=== PATIENT | female | born 1940 | race Caucasian/White ===

== ENCOUNTER 2019-01-16 17:05 | Inpatient (IN) | payer OTHER ==
[~2019-01-16] VITALS: Ht 149.9 cm; Wt 53.1 kg
[2019-01-16 17:05] VITALS: BP 149/74
[2019-01-16] MEDS ORDERED: LEVEMIR FL100 UNIT/2 SUBQ (17:40)
[2019-01-16] MEDS ORDERED: LEVO-T50 MCG PO (17:41)
[2019-01-16] MEDS ORDERED: COZAAR 25 MG TA25 M2 PO (17:41)
[2019-01-16] MEDS ORDERED: PLAVIX 75 MG TA75 MG PO (17:42)
[2019-01-16] MEDS ORDERED: ERGOCALCIF50000 UNIT PO (17:42)
[2019-01-16] MEDS ORDERED: FAMOTIDINE 10 M10 MG PO (17:43)
[2019-01-16] MEDS ORDERED: ESCITALOPRA5 MG/5 ML PO (17:43)
[2019-01-16] MEDS ORDERED: SLOW FE142 MG PO (17:44)
[2019-01-16] MEDS ORDERED: FOLIC ACID1 MG PO (17:44)
[2019-01-16] MEDS ORDERED: FLUVASTATIN ER80 MG PO (17:44)
[2019-01-16] MEDS ORDERED: KLOR-CON 1010 MEQ PO (17:44)
[2019-01-16] MEDS ORDERED: MELATONIN3 M1 PO (17:45)
[2019-01-16] MEDS ORDERED: RAYOS5 MG PO (17:45)
[2019-01-16] MEDS ORDERED: MELOXICAM15 MG PO (17:45)
[2019-01-16] MEDS ORDERED: METFORMIN HCL500 M3 PO (17:46)
[2019-01-16] MEDS ORDERED: METHOTREXATE 22.5 M1 PO (17:49)
[2019-01-16] MEDS ORDERED: ALLOPURINOL 10100 M3 PO (17:50)
[2019-01-16] MEDS ORDERED: AMITRIPTYLINE H10 M1 PO (17:50)
[2019-01-16] MEDS ORDERED: NORVASC 2.5 MG2.5 M1 PO (17:51)
[2019-01-16 18:17] LABS: ABSOLUTE NEUTROPHILS 5.4 thou/uL (1.4-8.2); BASOPHILS 0.1 % (0.0-2.0); EOSINOPHILS 0.4 % (0.0-3.0); HEMATOCRIT 34.5 % (37.0-47.0); HEMOGLOBIN 11.8 gm/dL (12.0-15.0); LYMPHOCYTES 21.8 % (24.0-44.0); MCH 34.5 pg (26.0-34.0); MCHC 34.3 g/dL (28.0-37.0); MCV 100.6 fL (80.0-100.0); MONOCYTES 0.9 % (1.0-8.0); PLATELET COUNT 333 thou/uL (150-400); POLYS 76.8 % (36.0-66.0); RBC 3.43 mil/uL (4.20-5.00); RDW 15.3 % (10.5-14.5)
[2019-01-16 18:32] LABS: CALCIUM 9.2 mg/dL (8.5-10.1); POTASSIUM 4.9 mmol/L (3.5-5.1)
[2019-01-16 18:37] LABS: ALBUMIN 3.5 g/dL (3.4-5.0); TOTAL BILIRUBIN 0.4 mg/dL (<0.1-1.0); TOTAL PROTEIN 7.1 g/dL (6.4-8.2)
[2019-01-16 19:33] LABS: LIPASE 379 U/L (73-393); TROPONIN-I <0.06 ng/mL (<0.06)
[2019-01-16 19:56] LABS: URINE BILIRUBIN NEGATIVE (Negative); URINE BLOOD NEGATIVE (Negative); URINE CLARITY CLEAR; URINE COLOR YELLOW; URINE GLUCOSE-RANDOM* NEGATIVE (Negative); URINE KETONES NEGATIVE (Negative); URINE LEUKOCYTES-REFLEX NEGATIVE (Negative); URINE NITRITE-REFLEX NEGATIVE (Negative); URINE PROTEIN (DIPSTICK) 2+ (Negative); URINE SPECIFIC GRAVITY 1.015 (1.005-1.035); URINE UROBILINOGEN 0.2 E.U./dl (0.2-1.0)
[2019-01-16 20:19] LABS: BACTERIA-REFLEX None Seen /HPF (None Seen); CASTS None Seen /LPF (None Seen); CRYSTALS None Seen /LPF (None Seen); SQUAMOUS 0-3 Few /LPF (0-3); URINE RBC 0-2 Rare /HPF (0-2); URINE WBC-REFLEX 0-5 Rare /HPF (0-5)
[2019-01-16 21:37] VITALS: BP 157/82
[2019-01-16 22:02] VITALS: BP 157/82
[2019-01-16] MEDS ORDERED: TRAZODONE HCL50 MG PO (22:43)
[2019-01-17 03:41] LABS: HEMATOCRIT 27.4 % (37.0-47.0); MCH 34.8 pg (26.0-34.0); MCHC 34.7 g/dL (28.0-37.0); MCV 100.4 fL (80.0-100.0); RBC 2.73 mil/uL (4.20-5.00); WBC 6.3 thou/uL (4.0-11.0)
[2019-01-17 03:51] LABS: CALCIUM 8.4 mg/dL (8.5-10.1); CREATININE 0.9 mg/dL (0.6-1.0)
[2019-01-17 04:25] LABS: HEMOGLOBIN 9.5 gm/dL (12.0-15.0)
[2019-01-17 04:27] LABS: POTASSIUM 3.8 mmol/L (3.5-5.1)
--- NOTE | 2019-01-17 04:32 | NUR ---
ADMITTED FROM ER UNDER 'S CARE. AXOX4. AT BEDSIDE. ISOLATION FOR POSSIBLE C.DIFF. EDUCATED ON WEARING GOWNS AND GLOVE FOR CONTACT WITH PT. PERSISTENT PAIN ON MOUTH,THROAT AND BACK. MEDICATE PER MD ORDER. FALL BUNDLE IN PLACE. NO S/S ACUTE DISTRESS NOTED REPORTED AT THIS TIME. WILL CONT TO MONITOR FOR ANY CHANGES IN CONDITION.
[2019-01-17 05:46] VITALS: BP 153/105
[2019-01-17 08:00] VITALS: BP 152/88
--- NOTE | 2019-01-17 08:09 | EKG ---
[address] [address] ELECTROCARDIOGRAM REPORT Name: ROSATUNDE Sergo Room #: 434-P [facility] IN ..#: [id number] Admission: 01/16/19 Attend Phys: Eugene Horton MD Discharge: Date of : 36 Report #: [id number] THIS REPORT FOR: //name// [facility] ED Test Date: 2019-01-16 Test Time: 19:29:59 Pat Name: TUNDE LEE Department: Room: 434 Gender: F Attacher: ORION : [id number] Requested By: Galen Barnard Order Number: [id number] MD: Flip Vizcarra Measurements Intervals [place] Rate: 82 P: 52 MA: 151 QRS: -41 QRSD: 118 T: 33 QT: 403 QTc: 471 Interpretive Statements Sinus rhythm Incomplete left bundle branch block No previous ECG available for comparison Electronically Signed On 01-17-2019 8:09:27 CDT by Flip Vizcarra [email or web address] <ELECTRONICALLY SIGNED> By: Flip Vizcarra MD, [facility] 01/17/19 0809 28 28 Flip Vizcarra MD, FACC /EPI
--- NOTE | 2019-01-17 10:45 | NUR ---
INITIAL ASSESSMENT: Pt evaluated for d/c planning needs. Reviewed chart and spoke with nurse, pt and spouse. Pt is alert and oriented. Pt lives in house with spouse and was independent with ADL's prior to admission to the hospital. Pt has no DME and has not had home health in the past. Pt plans on returning home on d/c from hospital. Explained AD/LW to pt and left brochure. They will have nurse contact CM if they decide to complete during hospitalization. Will remain available to assist as needed.
--- NOTE | 2019-01-17 15:55 | NUR ---
ASSUMED CARE OF PT AT 0700. PT ABLE TO AMBULATE WITH STANDBY ASSIST, BUT PT REFUSES GAITBELT. EXPLAINED FALL PRECAUTIONS TO PT AND PT UNDERSTOOD. PT'S MOUTH IS VERY PAIN AND PAIN IS BEING CONTROLLED BY MAGIC MOUTHWASH AND PAIN MEDICATION. PT IS ON ISOLATION FOR POSSIBLE C DIFF, BUT PT HAS NOT YET BEEN ABLE TO HAVE A BOWEL MOVEMENT. BED IS IN THE LOWEST POSITION. CALL LIGHT IS WITHIN REACH. BED ALARM IS ON AND FALL PRECAUTIONS ARE IN PLACE. WILL CONTINUE TO MONITOR THE PT.
[2019-01-17 17:38] VITALS: BP 138/56
[2019-01-17 19:37] VITALS: BP 138/60
[2019-01-17 19:40] VITALS: BP 138/60
--- NOTE | 2019-01-18 04:00 | NUR ---
PATIENT ALERT AND ORIENTED X4. UP WITH ONE ASSIST TO THE BATHROOM. IVF INFUSING W/O COMPLICATION. BS MONITORED PER ORDER. C/O MOUTH AND ABDOMINAL PAIN AND MEDICATED WITH GOOD RESUSTS. SOME WHITE BLISTERS NOTED ON BOTTOM LIP. NO BM DURING THE NIGHT - IF NO BM DURING THE DAY PATIENT WILL BE TAKEN OFF OF CDIFF ISOLATION. WILL MONITOR.
[2019-01-18 04:22] VITALS: BP 152/60
[2019-01-18 07:40] VITALS: BP 157/55
[2019-01-18 11:28] LABS: HEMATOCRIT 21.4 % (37.0-47.0); MCH 34.6 pg (26.0-34.0); MCHC 33.7 g/dL (28.0-37.0); MCV 102.7 fL (80.0-100.0); RBC 2.09 mil/uL (4.20-5.00); RDW 15.4 % (10.5-14.5); WBC 3.3 thou/uL (4.0-11.0)
[2019-01-18 11:32] LABS: HEMOGLOBIN 7.2 gm/dL (12.0-15.0)
[2019-01-18 14:08] LABS: ALBUMIN 2.5 g/dL (3.4-5.0); CALCIUM 8.2 mg/dL (8.5-10.1); CREATININE 0.8 mg/dL (0.6-1.0); MAGNESIUM 1.1 mg/dL (1.8-2.4); TOTAL BILIRUBIN 0.4 mg/dL (<0.1-1.0)
[2019-01-18 16:10] VITALS: BP 144/63
--- NOTE | 2019-01-18 17:00 | NUR ---
Assumed care of pt at 0700. Pt a&ox4. C-diff isolation discontinue due to no stools since admission. Waiting to collect stool sample for occult blood. ENT, GI, and RA doctor consulted. Delta hg 7.2 and Plt 124 called from lab. provider aware. Labs will be redrawn. order dilaudid for pt c/o pain. Med administered. Pt becomes confused and hallucinating. Provider called and asked to see pt in room. Dilaudid order dc'd. Family at bedside. Fall precautions in place. Will continue to monitor.
[2019-01-18 17:01] LABS: HEMATOCRIT 27.1 % (37.0-47.0); HEMOGLOBIN 9.1 gm/dL (12.0-15.0); MCHC 33.5 g/dL (28.0-37.0); MCV 104.5 fL (80.0-100.0); RBC 2.6 mil/uL (4.20-5.00); RDW 15.4 % (10.5-14.5); WBC 3.8 thou/uL (4.0-11.0)
[2019-01-18 19:32] VITALS: BP 119/49
[2019-01-18 20:23] LABS: FOLIC ACID 57.3 ng/mL (8.6-58.9)
--- NOTE | 2019-01-19 03:05 | NUR ---
PATIENT ALERT AND ORIENTED X4. UP WITH ONE ASSIST TO THE BATHROOM. IVF INFUSING W/O COMPLICATION. MEDICATED FOR ABDOMINAL PAIN WITH GOOD RESULTS PATIENT IS ABLE TO SLEEP DURING THE NIGHT. BS MONITORED PER ORDER. IV INFILTRATED AND THIS NURSE PLACED A NEW ONE IN RIGHT FOREARM. NO STOOL AT TIME OF NOTE. WILL MONITOR.
[2019-01-19 04:05] VITALS: BP 172/67
[2019-01-19 06:21] LABS: HEMATOCRIT 26.5 % (37.0-47.0); HEMOGLOBIN 9.1 gm/dL (12.0-15.0); MCH 35.1 pg (26.0-34.0); MCHC 34.5 g/dL (28.0-37.0); MCV 101.8 fL (80.0-100.0); RBC 2.6 mil/uL (4.20-5.00); WBC 3.2 thou/uL (4.0-11.0)
[2019-01-19 06:40] LABS: CALCIUM 8.1 mg/dL (8.5-10.1); CREATININE 0.8 mg/dL (0.6-1.0); MAGNESIUM 1.6 mg/dL (1.8-2.4); POTASSIUM 3.6 mmol/L (3.5-5.1)
[2019-01-19 09:03] VITALS: BP 159/85
--- NOTE | 2019-01-19 11:30 | HC ---
[facility] [place] [address] CONSULTATION Name: TUNDE LEE Room #: 434-P ADM IN M.R.#: [id number] Admission: 01/16/19 Attend Phys: Eugene oHrton MD Discharge: Date of : 38 Report #: [id number] THIS REPORT FOR: //name// CC: Dr. Leonarda ESPINAL DATE OF SERVICE: 01/18/2019 HISTORY OF PRESENT ILLNESS: The patient is an 78-year-old female with a history of chronic headache as well as odynophagia and dysphagia. The patient also has had a drop in her hemoglobin from admission at 11.8-7.2, although she was complaining of diarrhea at home. She has not had a bowel movement since admission. In fact, stool studies have been ordered, but they have not been able to run these tests because she has not had a bowel movement. She denies any history of bright red blood per rectum or melena. She does complain of abdominal pain. She also has been taking large amount of NSAIDs, Motrin in particular. She is on Plavix. She also is on meloxicam. No previous history of GI bleed. No history of peptic ulcer disease per the patient and her . Her and the patient states she has chronic constipation issues and actually takes Guatemalan Pratibha, which is an herbal laxative every day including a stool softener at home and this results in diarrhea and their opinion. She apparently had a colonoscopy last year at [facility] that was negative. She has painful ulcer on her lip and in her mouth. Apparently, she was to have ENT consultation on Sunday as well. She denies any chest pain currently or shortness of breath. No fevers or chills. PAST MEDICAL HISTORY: Hypertension, diabetes, anemia, chronic headache, hypothyroidism, previous appendectomy, history of gout. MEDICATIONS ON ADMISSION: Trazodone, insulin, Cozaar, Plavix, ____ Pepcid 10 mg daily, iron, folic acid, potassium chloride, prednisone, melatonin, meloxicam, metformin, methotrexate, allopurinol, amitriptyline, amlodipine. REVIEW OF SYSTEMS: As per HPI. FAMILY HISTORY: Negative for colon cancer. SOCIAL HISTORY: She denies any tobacco or alcohol use. ALLERGIES: No known drug allergies. PHYSICAL EXAMINATION: [facility] [address] [place] [address] CONSULTATION Name: TUNDE LEE Room #: 434-P [facility] IN [facility]#: [id number] Admission: 01/16/19 Attend Phys: Eugene Horton MD Discharge: Date of : 38 Report #: [id number] VITAL SIGNS: Temperature is 36.9, pulse 70, blood pressure 157/55, respiratory rate is 18. GENERAL: She is alert and oriented x 3, in no acute distress. HEENT: Sclerae nonicteric. Oropharynx shows an ulcer just on the inside of her bottom lip. Lips are dry and chapped as well. NECK: Supple, without lymphadenopathy. CARDIOVASCULAR: Regular rate and rhythm. CHEST: Clear to auscultation anteriorly bilaterally. ABDOMEN: Soft. She is mildly tender to palpation diffusely. Nondistended. Positive bowel sounds. EXTREMITIES: No edema. LABORATORY DATA: WBC is 3.3, hemoglobin 7.2, platelet count is 124. Her hemoglobin again is dropped from 11.8 to 7.2 in three days. Electrolytes from today have not been received. IMAGING: CT scan of the abdomen and pelvis on 01/16/2019 shows slight fluid prominence of the right colon along with haustral appearance. The left colon shows slight wall thickening along mild enhancement of the colonic wall. Clinical correlation recommended possible subtle changes of colitis or inflammatory bowel disease. No findings of bowel obstruction. Gallbladder was normal. Previous appendectomy noted. ASSESSMENT AND PLAN: 1. Odynophagia. The patient also with dysphagia. She does have an ulcer on her bottom lip. I would recommend proceeding with an upper endoscopy on Sunday. We will make further recommendations at that time. In the meantime, because of her odynophagia, we will start liquid Carafate, which could maybe help her bottom lip ulcer as well. We will also place the patient on a PPI, especially with her drop in hemoglobin and a history of NSAID Plavix as well as meloxicam use. We will rule out peptic ulcer disease on Sunday. The patient obviously has had a drop in her hemoglobin. If there are signs of significant bleeding, may need to consider endoscopy sooner. 2. History of diarrhea; however, in discussing further with the patient and her . Apparently, she has a chronic history of constipation and therefore takes several different laxatives at home in order to have a bowel movement and when she finally does have a bowel movement, it tends to be diarrhea. I explained to the patient we may want to consider discontinuing her current regimen and consider a trial of Amitiza or Linzess in the near future. She apparently has already tried MiraLax without much improvement. Thank you for allowing me to participate in her care. <ELECTRONICALLY SIGNED> By: Jhonatan Wall MD 01/19/19 1130 1302 1327 Jhonatan Wall MD /dakota
--- NOTE | 2019-01-19 17:49 | NUR ---
PT RESTING QUIETLY IN BED FAMILY AT BEDSIDE. PT PLEASANT AND COOPERATIVE WITH CARE. CONT OF BOWEL AND BLADDER. WALKS TO BATHROOM WITH STEADY GAIT. DR CHAVEZ ENT HERE AND ORDERED CREAM FOR LIPS AND MED TO SWISH WITH. BLOOD SUGARS CHECKED. S/S INSULIN PER ORDERS. REMAINS ON CLEAR LIQUIDS.
[2019-01-19 18:36] VITALS: BP 94/57
[2019-01-19 21:02] VITALS: BP 137/61
--- NOTE | 2019-01-20 04:21 | NUR ---
PATIENT ALERT AND ORIENTED X4. SLEPT WELL DURING THE NIGHT. C/O PAIN AND MEDICATED WITH GOOD RESULTS. IVF INFUSING W/O COMPLICATION. BS MONITORED PER ORDER. PATIENT HAS BEEN NPO SINCE 2358 ON 01/19/19 FOR EGD PROCEDURE NOT YET SCHEDULED. STATES THAT HER MOUTH FEELS A LITTLE BETTER. UP WITH ONE ASSIST TO THE BATHROOM. WILL MONITOR.
[2019-01-20 05:43] VITALS: BP 134/64
[2019-01-20 06:37] LABS: HEMATOCRIT 25.2 % (37.0-47.0); HEMOGLOBIN 8.6 gm/dL (12.0-15.0); MCHC 34.3 g/dL (28.0-37.0); MCV 102.2 fL (80.0-100.0); RBC 2.47 mil/uL (4.20-5.00); RDW 15.2 % (10.5-14.5); WBC 3.1 thou/uL (4.0-11.0)
[2019-01-20 06:53] LABS: CALCIUM 8.4 mg/dL (8.5-10.1); CREATININE 0.8 mg/dL (0.6-1.0); MAGNESIUM 1.5 mg/dL (1.8-2.4)
[2019-01-20 07:43] VITALS: BP 189/77
--- NOTE | 2019-01-20 18:50 | NUR ---
ASSUMED CARE @ 0700, ASSESSMENTS AND VSS COMPLETE PER MS ORDERS, FAMILY AT BEDSIDE DURING THE SHIFT. PT HAD AN UNEVENTFUL NIGHT.
[2019-01-20 20:40] VITALS: BP 179/80
[2019-01-21] VITALS (8 sets, daily range): BP systolic 131–173; BP diastolic 48–76
--- NOTE | 2019-01-21 05:11 | NUR ---
ASSUMED CARE OF PT AT AROUND 2099. ASSESSMENT CHARTED. MEDICATIONS GIVEN PER MAY. PT IS A&OX4, HAS GOTTEN UP TO TOILET WITH SBA AND STEADY GAIT. PT CONTINUES TO COMPLAIN OF MOUTH AND THROAT PAIN. PRN MEDS GIVEN AND PAIN WILL BE CONTINUED TO BE MONITORED. SCD'S IN PLACE. CURRENTLY, PT REPORTS GENERAL MALAISE AND WEAKNESS. BP WAS ELEVATED. GIVEN PRN BP MED BY RN AND STABLIZED. PT ALSO CONCERNED WITH MINOR SWELLING OF FACE AND HANDS. NO REDNESS NOTED. WILL CONTINUE TO MONITOR
[2019-01-21 05:54] LABS: HEMATOCRIT 30.2 % (37.0-47.0); HEMOGLOBIN 10.3 gm/dL (12.0-15.0); MCHC 34.1 g/dL (28.0-37.0); MCV 102.5 fL (80.0-100.0); RBC 2.95 mil/uL (4.20-5.00); RDW 15.7 % (10.5-14.5); WBC 5.2 thou/uL (4.0-11.0)
[2019-01-21 06:20] LABS: CALCIUM 8.9 mg/dL (8.5-10.1); CREATININE 0.9 mg/dL (0.6-1.0); MAGNESIUM 1.6 mg/dL (1.8-2.4); POTASSIUM 3.8 mmol/L (3.5-5.1)
--- NOTE | 2019-01-21 12:33 | NUR ---
Received awake on bed. Due medications given as prescribed, able to swallow meds w/o difficulty. A+Ox4. On room air. On blood sugar monitoring- taken and recorded accordingly; with sliding scale insulin prescribed. On full liquids- tolerating well; no nausea, no vomiting or abdominal pain noted. With relatives at bedside. With NS at 75cc/hr, infusing well at R FA. Pt complained of pain, due PRN pain meds given as prescribed. Vital signs stable. Pt complained that she still has not have a bowel movement for 5 days despite being on daily Miralax- Dr Cardoso informed, PRN lactulose given as prescribed. Able to go to the bathroom with A01, using gait belt.
[2019-01-22 05:29] LABS: HEMATOCRIT 26.3 % (37.0-47.0); HEMOGLOBIN 8.8 gm/dL (12.0-15.0); MCH 34.3 pg (26.0-34.0); MCHC 33.5 g/dL (28.0-37.0); MCV 102.4 fL (80.0-100.0); RBC 2.57 mil/uL (4.20-5.00); RDW 15.9 % (10.5-14.5); WBC 3.3 thou/uL (4.0-11.0)
[2019-01-22 05:41] LABS: CALCIUM 8.8 mg/dL (8.5-10.1); CREATININE 0.7 mg/dL (0.6-1.0); MAGNESIUM 1.6 mg/dL (1.8-2.4); POTASSIUM 3.7 mmol/L (3.5-5.1)
--- NOTE | 2019-01-22 06:20 | NUR ---
ASSUMED PT CARE AT APPROX 2100. PATIENT IS A&OX4. ASSESSMENT CHARTED. MEDICATIONS GIVEN PER MAY. PT STATES PAIN ON MOUTH AND THROAT IS STILL BOTHERING HER. WE WILL BE GIVING HER PRN PAIN MEDS NEEDED. PT IS STATING ABDOMINAL DISCOMFORT. ABD IS DISTENDED. FALL PRECAUTIONS IN PLACE. WILL CONTINUE TO MONITOR PATIENT. MIRALAX WAS GIVEN.
--- NOTE | 2019-01-22 17:15 | NUR ---
Therapy evals yesterday. No hh f/u indicated at this time. Pt having abd pain today. Will continue to follow should dc needs arise.
[2019-01-22 18:25] VITALS: BP 125/41
[2019-01-22 20:03] VITALS: BP 135/59
--- NOTE | 2019-01-22 20:38 | NUR ---
AT 1045 PATIENT GIVEN MAG CITRATE AND ENEMA. LATER HAD 4 BOWEL MOVEMENTS. PT SBA TO BATHROOM HAS STEADY GAIT.
--- NOTE | 2019-01-23 02:48 | NUR ---
ASSUMED CARE OF PT AT 1900HRS. PT AOX4 AND LETS NEEDS BE KNOWN. FALL PRECAUTION IN PLACE. PT REPORTED PAIN AND WAS TREATED WITH PRN PAIN MEDS. PT WAS AVLE TO SLEEP PART OF THE SHIFT. VSS AND NO S/S OF ACUTE DISTRESS. WILL CONTINUE TO MONITOR.
[2019-01-23 06:28] LABS: HEMATOCRIT 27.6 % (37.0-47.0); HEMOGLOBIN 9.4 gm/dL (12.0-15.0); MCH 34.6 pg (26.0-34.0); MCV 101.6 fL (80.0-100.0); RBC 2.72 mil/uL (4.20-5.00); RDW 15.6 % (10.5-14.5)
[2019-01-23 06:53] LABS: ALBUMIN 2.7 g/dL (3.4-5.0); CALCIUM 8.8 mg/dL (8.5-10.1); CREATININE 0.7 mg/dL (0.6-1.0); MAGNESIUM 1.5 mg/dL (1.8-2.4); POTASSIUM 3.3 mmol/L (3.5-5.1); TOTAL BILIRUBIN 0.3 mg/dL (<0.1-1.0); TOTAL PROTEIN 5.8 g/dL (6.4-8.2)
[2019-01-23] MEDS ORDERED: TRAMADOL 50 MG50 MG PO (13:26)
[2019-01-23] MEDS ORDERED: PROTONIX40 M1 PO (13:26)
[2019-01-23] MEDS ORDERED: MAGIC MOUTHWASH SWISH&SPIT (13:26)
[2019-01-23] MEDS ORDERED: CARAFATE 11 GM/10 M1 PO (13:26)
[2019-01-23 13:41] VITALS: BP 155/72
--- NOTE | 2019-01-23 14:06 | PATH ---
[facility] [place] [address] PATHOLOGY RPT PROCEDURE Name: LATHA LEE Sergo Room #: 434-P [facility] IN M.R.#: [id number] Admission: 01/16/19 Date of : 38 Discharge: Report #: [id number] Path Case #: [id number] [facility] Accession Number: [id number] . 01 Material submitted: . PART A: esophagus - ESOPHAGUS BIOPSY PART B: stomach - GASTRIC EROSION . 01 Clinical history: . Pre-op diagnosis: Pain with swallowing Post-op diagnosis: Gastric erosion . 02 Diagnosis: A. Squamous mucosa, esophagus, endoscopic biopsy: - Mild esophagitis showing features compatible with reflux esophagitis. - Negative for increase in intraepithelial eosinophils. - Negative for intestinal metaplasia or dysplasia. . B. Gastric mucosa, gastric erosion, endoscopic biopsy: - Moderate reactive gastropathy. - Pigmented material overlying reactive mucosa (please see comment). - Negative for intestinal metaplasia or atrophy. - Negative for Helicobacter pylori (properly-controlled immunohistochemical stain performed). . (IUV:mml; 01/22/2019) QLM 01/22/2019 1154 Local . 02 Comment: Examination shows pigmented material overlying the reactive gastric mucosa. This may represent bile pigment, or iron. A special stain is ordered and the results of this will be reported in an addendum to follow. . (IUV:mml; 01/22/2019) . 02 Addendum: . This addendum is issued subsequent to reviewing a properly controlled iron special stain performed on block B. The iron stain is positive within the pigment identified on the surface epithelium, consistent with the provided history of gastric erosion or prior bleeding. The positive stain excludes the possibility that this pigment represents bile. (IUV:blake; 01/23/2019) . . Professional services performed by [facility] at [facility], [address] [place] [address] , [place] [address]. Technical services performed by [facility] at [address] [place] [address], [address], [place] [address]. [facility] [address] [place] [address] PATHOLOGY RPT PROCEDURE Name: LEELATHA Room #: 434-P [facility] IN M.R.#: [id number] Admission: 01/16/19 Date of : 38 Discharge: Report #: [id number] Path Case #: [id number] MBR/01/23/2019 Addendum Electronically Signed by Latanya U Vadlamani, MD, Pathologist . 02 Electronically signed: . Latanya Avila MD, Pathologist NPI- [id number] . 01 Gross description: . A. The specimen is received in formalin, labeled "Latha Lee, esophagus biopsy". Received are f five segments of pale diaz soft tissue ranging in size from 0.3 to 0.5 cm in maximum dimensions. The specimen is submitted entirely in cassette A1. . B. The specimen is received in formalin, labeled "Latha Lee, gastric erosion". Received are four segments of pale diaz soft tissue ranging in size from 0.3 to 0.5 cm in maximum dimensions. The specimen is submitted entirely in cassette B1. (CAA; 01/21/2019) QAC/QAC 01/21/2019 0927 Local . 02 Pathologist provided ICD-10: K21.9, K31.9 . 02 CPT . 578330, 750410, V56029, 165975 Specimen Comment: A courtesy copy of this report has been sent to Specimen Comment: [phone], , . Specimen Comment: Report sent to ,DR ESPINAL / DR COTTRELL Performed at: [address], [place] [id number] MD Je Bravo MD Phone: [phone] Performed at: [address] [id number] MD Latanya Avila MD Phone: [phone]
--- NOTE | 2019-01-23 14:08 | NUR ---
DISCHARGE PAPERS GONE OVER WITH PATIENT SIGNED AND COPY IN CHART. IV ACSESS DCD. RX'S GIVEN TO PATIENT. ALL BELONGINGS PACKED AND TO BE SENT WITH PATIENT. HERE WITH PATIENT. PATIENT W/O PAIN OR RESP DISTRESS AT DISCHARGE.
[2019-01-23 14:18] VITALS: BP 155/72
--- NOTE | 2019-02-04 15:49 | HC ---
[facility] [place] [address] [place] [address] CONSULTATION Name: TUNDE LEE eSrgo Room #: 434-P [facility] IN M.R.#: [id number] Admission: 01/16/19 Attend Phys: Eugene Horton MD Discharge: 01/23/19 Date of : 38 Report #: [id number] THIS REPORT FOR: //name// CC: Dr. Coby ESPINAL DATE OF SERVICE: 01/16/2019 SURGEON: Jeffrey Carias MD REASON FOR CONSULTATION: Mouth ulceration. HISTORY OF PRESENT ILLNESS: The patient is an 78-year-old female admitted to [facility] on 01/16/2019 with complaints of ulcerations in her mouth that had their onsets shortly after beginning antibiotics for suspected sinus infection by her primary care physician. She had been prescribed doxycycline, rizatriptan and prednisone. These ulcers began rather suddenly. She has no previous history of mouth ulcerations. These have been very sore and distressing creating significant dysphagia. The patient has been provided with symptomatic care with topical lidocaine and diphenhydramine, Magic mouthwash with some relief but not resolution. The patient complains of a longstanding history of chronic headache dating back months. She describes this as more right-sided. Not been associated with any systemic fever, chills or night sweats. She had also complained of drainage in the right ear. A sinus and head CT were done, which I have reviewed. There is no evidence of any sinusitis, middle ear disease or mastoid disease. She does not have a history of chronic ear problems. The onset of these mouth ulcerations brings up a concern for medication reaction and always concern for Delacruz-Jeremy syndrome. She has no cutaneous manifestations of this. The patient is also being evaluated by her psychology clinician for colitis. Crohn disease is another thing that can cause mucositis with extension to the lips. She is pending a colonoscopy. PAST MEDICAL HISTORY: Significant for diabetes mellitus, hypertension, hypothyroidism. She has a surgical history of appendectomy. She has a history of gout in the distant past. [facility] [address] [place] [address] CONSULTATION Name: TUNDE LEE Sergo Room #: 434-P [facility] IN [facility].#: [id number] Admission: 01/16/19 Attend Phys: Eugene Horton MD Discharge: 01/23/19 Date of : 38 Report #: [id number] CURRENT MEDICATIONS: Reviewed on her MAY. ALLERGIES: None. SOCIAL HISTORY: She does not currently use alcohol or tobacco. She has no recreational drug abuse. REVIEW OF SYSTEMS: She is complaining of dysphagia and sore mouth, sore lips in addition to a headache and various myalgias. Remaining review of systems are negative. PHYSICAL EXAMINATION: GENERAL: Shows a well-developed 78-year-old female, seen in her hospital room. Her nurse is present with her. VITAL SIGNS: Show a temperature of 98.2, blood pressure 159/85, pulse of 80, 100% on room air pulse oximetry. HEENT: She is normocephalic. Pupils are equal, round, reactive to light. There is no evidence of any corneal clouding and no evidence of any conjunctival injection. Otologic exam normal canal, normal pinna, normal tympanic membrane, normal middle ear with no middle ear effusion. Nasal exam shows a deviated septum to the left, nonobstructing. Oral cavity shows ulcerations on the lower lip in addition to a confluent mucositis, especially soft palate and extending into the pharynx. This seems to spare the tongue. NECK: There is some shotty jugulodigastric adenopathy, but no neck mass and no fluctuance. Trachea is midline. NEUROLOGIC: Cranial nerves 2-12 are intact. Motor, sensory and cerebellar exams are otherwise grossly normal. ASSESSMENT: Acute mucositis extending to the lower lip of several days duration, is difficult to pinpoint this. This seemed to begin after use of doxycycline for presumed sinus infection. I do not see any sinusitis on her CT sinus. These finding would be concerning for a toxic mucositis secondary to antibiotics. I see no clinical evidence for Delacruz-Jeremy syndrome; however, there is an entity called Fuchs syndrome that can be mucosal without involvement of skin. Treatment should be aggressive and supportive. I would like to begin some topical prednisone rinses of her mouth. In addition, triamcinolone cream for her lips. Differential diagnoses also includes; 1. Crohn's disease. The patient does have colitis ongoing and is pending colonoscopy. Consideration can be given to biopsy if this fails to improve on conservative therapy. 2. Chronic headache. CT of head as well as CT sinus reviewed. I see no evidence of any primary otolaryngic etiology for her headache. The headaches have tended to be right-sided but have been ongoing now for at least a [facility] [address] [place] [address] CONSULTATION Name: TUNDE LEE Room #: 434-P [facility] IN M.R.#: [id number] Admission: 01/16/19 Attend Phys: Eugene Horton MD Discharge: 01/23/19 Date of : 36 Report #: [id number] year. I would suggest an erythrocyte sedimentation rate be drawn. I do not see this. The patient follows with Dr. Basurto. She is not tender over her temporal artery but consideration can be given to a temporal artery biopsy to further evaluate. 3. Odynophagia secondary to the patient's mucositis. 4. Low white count in the face of diabetes mellitus with immunocompromise. 5. Rheumatoid arthritis, on chronic prednisone and methotrexate also with immunocompromised. Likely, this has to do with her mucositis and poor ability to contain mucosal components. 6. Hypothyroidism. PLAN: We will plan to follow along my partner Dr. Lerner, who will be taking over hospital consults tomorrow. I will make him aware. I appreciate the consultation and the ability to share in her care. <ELECTRONICALLY SIGNED> By: Jeffrey Carias MD 02/04/19 1549 0909 1128 Jeffrey Carias MD /nt
== END 2019-01-23 14:42 | disposition home or self-care (01) | DRG 157 ==
LOC: ER 17:05 → 4S 20:37 → EROBS 20:37 → 4S 22:03 → ENTRNSPT 01-23 14:03 → EDTRNSPTSTS 01-23 14:05 → 4S 01-23 14:42
PROVIDERS: Emergency Medicine; Internal Medicine; Nurse Practitioner Family; ADMIT Hospitalist
PROC: 0DB58ZX Excision of Esophagus, Via Natural or Artificial Opening Endoscopic, Diagnostic (ICD-10-PCS; principal; 2019-01-20)
PROC: 0DB68ZX Excision of Stomach, Via Natural or Artificial Opening Endoscopic, Diagnostic (ICD-10-PCS; principal; 2019-01-20)
DX: K12.1 Other forms of stomatitis (principal); E43 Unspecified severe protein-calorie malnutrition; E87.1 Hypo-osmolality and hyponatremia; E87.2 Acidosis; K50.90 Crohn's disease, unspecified, without complications; K25.9 Gastric ulcer, unspecified as acute or chronic, without hemorrhage or perforation; K52.9 Noninfective gastroenteritis and colitis, unspecified; R13.11 Dysphagia, oral phase; E11.9 Type 2 diabetes mellitus without complications; I10 Essential (primary) hypertension; E03.9 Hypothyroidism, unspecified; M10.9 Gout, unspecified; M06.9 Rheumatoid arthritis, unspecified; K12.30 Oral mucositis (ulcerative), unspecified; D53.9 Nutritional anemia, unspecified; E83.42 Hypomagnesemia; N89.8 Other specified noninflammatory disorders of vagina; Z28.21 Immunization not carried out because of patient refusal; Z90.49 Acquired absence of other specified parts of digestive tract; Z79.1 Long term (current) use of non-steroidal anti-inflammatories (NSAID); Z86.73 Personal history of transient ischemic attack (TIA), and cerebral infarction without residual deficits
CPT/HCPCS: 10195; 62110; 62900; 70005